=== PATIENT | male | born 1955 | race Caucasian/White ===

== ENCOUNTER → 2016-06-13 | Day surgery (SDC) | payer OTHER ==
[~2016-06-13] VITALS: Ht 177.8 cm; Wt 145.1 kg
[~2016-06-13] MED LIST: ASPIRIN EC81 M1 PO; CLONAZEPAM1 M2 PO; CRESTOR20 M2 PO; DIOVAN HCT 3201 EAC1 PO; FOLIC ACID1 M1 PO; PRISTIQ ER50 MG PO; TOPAMAX25 M3 PO
--- NOTE | 2016-06-13 09:28 | Operative Report ---
Operative/Inv Procedure Report Surgery Date: 06/13/16 Name of Procedure: Right open carpal tunnel release Pre-Operative Diagnosis: Right carpal tunnel syndrome Post-Operative Diagnosis: Right carpal tunnel syndrome Estimated Blood Loss: scant Surgeon/Deburr Technician: VIDYA RICHARDS MD Anesthesia: laryngeal mask airway Complications: None Condition: Stable to PACU Operative Indication: This is a 61-year-old male with long-standing right carpal tunnel syndrome that has failed conservative care. Risks and benefits of the procedure were discussed with the patient at length. Risks include but are not limited to nerve damage, muscle damage, infection, blood loss, blood clots, pulmonary embolus, and even . The patient agreed to the above risks and elected to proceed with surgery. Operative/Procedure Note Note: The patient was taken to the operating room and placed supine on the operating room table. A tourniquet was applied to the arm above the elbow. The upper extremity was prepped and draped in the normal sterile fashion. The patient received IV antibiotics prior to incision. A time out was performed and the site marking was also visualized prior to incision. An Esmarch was used to exsanguinate the extremity. The tourniquet was inflated. An incision was made extending from the distal wrist crease starting overlying the palmaris longest tendon in line with the fourth ray. This extended 2.5 cm. Care was taken not to cross Casanova's cardinal line. Fat was also reflected at this time and the palmar fascia was incised. Next the transverse carpal ligament was incised. A [place] elevator was inserted deep to the ligament to protect the contents of the carpal tunnel. A knife was then used to release the ligament further distally. Next scissors were used to extend the release distally until the palmar fat was approached, taking care to protect the superficial palmar arch. The transverse carpal ligament was then incised proximally. The volar forearm fascia was released. Once the release was complete the wound was copiously irrigated. The incision was closed with 3-0 nylon suture in a simple interrupted fashion. 0.25% Marcaine was then injected to anesthetize the wound. A dry sterile dressing was applied and the patient was transferred to PACU in stable condition.
== END ==
LOC: STS 05-09 07:00
DX: G56.01 Carpal tunnel syndrome, right upper limb (principal); I25.10 Atherosclerotic heart disease of native coronary artery without angina pectoris; E11.9 Type 2 diabetes mellitus without complications; I10 Essential (primary) hypertension; E66.9 Obesity, unspecified; Z68.42 Body mass index [BMI] 45.0-49.9, adult
CPT/HCPCS: J0690; J2250